=== PATIENT | female | born 1950 | race African-American/Black ===

== ENCOUNTER 2018-02-14 18:48 | Inpatient (IN) | payer MEDICARE, OTHER ==
[~2018-02-14] VITALS: Ht 165.1 cm; Wt 89.9 kg
[2018-02-14 19:45] LABS: Basophils # (auto) 0.2 uL; Eosinophils # (auto) 0.2 uL; Eosinophils % (auto) 2.2 % (0.0-7.0); Hematocrit 45.3 % (36.0-46.0); Hemoglobin 15.1 g/dL (12.2-16.2); Lymphocytes # (auto) 2.5 uL; Mean Corpuscular Hemoglobin 28.9 pg (28.0-32.0); Mean Corpuscular Hgb Conc. 33.3 g/dL (32.0-36.0); Mean Corpuscular Volume 86.7 fL (80.0-100.0); Monocytes # (auto) 0.7 uL; Monocytes % (auto) 9.7 % (0.0-12.0); Neutrophils # (auto) 3.3 uL; Neutrophils % (auto) 48.1 % (37.0-80.0); Nucleated Red Blood Cells % 0.2 %; Platelet Count (auto) 248 10^3/uL (140-450); Red Blood Cells 5.22 10^6/uL (4.0-5.20); Red Cell Distribution Width 14.3 % (11.8-14.3); White Blood Cell 6.9 10^3/uL (4.4-10.8)
[2018-02-14 20:01] LABS: Alanine Aminotransferase 16 U/L (13-56); Albumin 3.4 g/dL (3.4-5.0); Anion Gap 8 (5-15); Aspartate Aminotransferase 12 U/L (15-37); Blood Urea Nitrogen 15 mg/dL (7-18); Calcium 8.5 mg/dL (8.5-10.1); Carbon Dioxide 27 mmol/L (21-32); Chloride 101 mmol/L (98-107); GFR African American 76 mL/min; GFR Non-African American 63 mL/min; Glucose 86 mg/dL (74-106); Potassium 4.1 mmol/L (3.5-5.1); Sodium 136 mmol/L (136-145)
[2018-02-14 20:06] LABS: Alkaline Phosphatase 91 U/L (45-117); Bilirubin, Total 0.2 mg/dL (0.2-1.0); Total Protein 7.7 g/dL (6.4-8.2)
[2018-02-15] MEDS ORDERED: LABETALOL HCL 5 MG/ML ML 20ML VIAL IV ONE
[2018-02-15] MEDS ORDERED: MECLIZINE HCL 25 MG TAB PO ONE (01:15)
[2018-02-15] MEDS ORDERED: ACETAMINOPHEN 500 MG TAB PO PRN (03:15)
[2018-02-15] MEDS ORDERED: ONDANSETRON HCL 4 MG/2 ML VIAL IV PRN (03:15)
[2018-02-15] MEDS: TEMAZEPAM 15 MG CAP PO PRN (04:19)
[2018-02-15 04:50] VITALS: BP 156/72
[2018-02-15 05:01] VITALS: BP 156/72
[2018-02-15] MEDS ORDERED: LABE100T PO (05:14)
[2018-02-15] MEDS ORDERED: GLIP-115 PO (05:14)
[2018-02-15 08:04] LABS: Basophils # (auto) 0.1 uL; Basophils % (auto) 1.4 % (0.0-2.0); Eosinophils # (auto) 0.1 uL; Eosinophils % (auto) 2.3 % (0.0-7.0); Hematocrit 41.8 % (36.0-46.0); Lymphocytes # (auto) 2.4 uL; Lymphocytes % (auto) 41.2 % (10.0-50.0); Mean Corpuscular Hemoglobin 28.8 pg (28.0-32.0); Mean Corpuscular Hgb Conc. 33.4 g/dL (32.0-36.0); Mean Corpuscular Volume 86.1 fL (80.0-100.0); Monocytes # (auto) 0.6 uL; Neutrophils # (auto) 2.6 uL; Neutrophils % (auto) 45.1 % (37.0-80.0); Nucleated Red Blood Cells % 0.1 %; Platelet Count (auto) 213 10^3/uL (140-450); Red Blood Cells 4.85 10^6/uL (4.0-5.20); Red Cell Distribution Width 14.3 % (11.8-14.3); White Blood Cell 5.7 10^3/uL (4.4-10.8)
[2018-02-15 08:23] LABS: BUN/Creatinine Ratio 24.1; Calcium 8.2 mg/dL (8.5-10.1)
[2018-02-15 09:00] VITALS: BP 136/76
[2018-02-15] MEDS ORDERED: LABETALOL HCL 200 MG TAB PO SCH (10:00)
[2018-02-15] MEDS: glipiZIDE 5 MG TAB PO SCH (10:31)
[2018-02-15 13:00] VITALS: BP 160/77
[2018-02-15 17:00] VITALS: BP 159/66
[2018-02-15] MEDS ORDERED: ALPRAZolam 0.25 MG TAB PO PRN (19:15)
[2018-02-15] MEDS ORDERED: LORazepam 2MG/ML-1ML VIAL IV PRN (19:15)
[2018-02-15] MEDS ORDERED: HALOPERIDOL LACTATE 5 MG/ML INJ VIAL IM PRN (19:15)
[2018-02-15 20:04] LABS: Folate (Folic Acid) 11.62 ng/mL (5.38-24)
[2018-02-15 22:00] VITALS: BP 154/64
[2018-02-15] MEDS: LABETALOL HCL 200 MG TAB PO SCH (22:45)
[2018-02-16 04:47] VITALS: BP 149/85
[2018-02-16 05:47] LABS: Urine WBC None Seen /hpf (0 - 5)
[2018-02-16 05:55] LABS: Urine Bacteria NONE SEEN /hpf (None Seen); Urine Blood Negative /uL (Negative); Urine Specific Gravity 1.008 (1.001-1.035)
[2018-02-16] MEDS: LABETALOL HCL 200 MG TAB PO SCH ×3 (06:05→21:42)
[2018-02-16 06:12] LABS: Alcohol, Urine < 3.0 mg/dL (0-5); Amphetamine Screen, Urine NEGATIVE (NEGATIVE); Barbiturate Scree,Urine NEGATIVE (NEGATIVE); Benzodiazephine Screen, Urine NEGATIVE (NEGATIVE); Cannabinoid Screen, Urine NEGATIVE (NEGATIVE); Cocaine Screen, Urine NEGATIVE (NEGATIVE); Opiate Scree,Urine NEGATIVE (NEGATIVE); Phencyclidine Screen, Urine NEGATIVE (NEGATIVE)
[2018-02-16 08:00] VITALS: BP 192/77
[2018-02-16] MEDS: glipiZIDE 5 MG TAB PO SCH (08:13)
[2018-02-16] MEDS: ATORVASTATIN 20 MG TAB PO SCH (10:19)
[2018-02-16] MEDS ORDERED: BENAZEPRIL HCL 10 MG TAB PO ONE (11:00)
[2018-02-16] MEDS ORDERED: hydrALAZINE HCL 20 MG/ML VL IV PRN (11:30)
[2018-02-16 17:00] VITALS: BP 161/78
[2018-02-16] MEDS: BENAZEPRIL HCL 10 MG TAB PO SCH (21:41)
[2018-02-16] MEDS: TEMAZEPAM 15 MG CAP PO PRN (21:42)
[2018-02-16 22:43] VITALS: BP 156/77
[2018-02-17 05:18] VITALS: BP 148/67
[2018-02-17] MEDS: LABETALOL HCL 200 MG TAB PO SCH (06:46)
[2018-02-17] MEDS: glipiZIDE 5 MG TAB PO SCH (08:34)
[2018-02-17 09:00] VITALS: BP 133/73
[2018-02-17] MEDS: BENAZEPRIL HCL 10 MG TAB PO SCH (11:27)
[2018-02-17] MEDS: ATORVASTATIN 20 MG TAB PO SCH (11:27)
== END 2018-02-17 13:15 | disposition home health service (06) | DRG 305 ==
LOC: ER 18:48 → OVERFLOW 18:49 → WEST WING 02-15 04:28
PROVIDERS: ADMIT Nurse Practitioner Family; ATTEND Internal Medicine Pulmonary Disease
DX: I16.0 Hypertensive urgency (principal); R42 Dizziness and giddiness; R44.1 Visual hallucinations; E11.9 Type 2 diabetes mellitus without complications; R51 Headache; E03.9 Hypothyroidism, unspecified; I10 Essential (primary) hypertension; Z82.49 Family history of ischemic heart disease and other diseases of the circulatory system; Z83.3 Family history of diabetes mellitus; Z79.84 Long term (current) use of oral hypoglycemic drugs; Z88.5 Allergy status to narcotic agent
CPT/HCPCS: 36415; 70450; 70545; 70551; 71045; 72125; 80048; 80053; 80307; 81001; 82607; 82746; 82962; 83036; 84443; 84484; 85025; 93005; 93306; 95819; 96374

== ENCOUNTER 2025-04-30 18:49 | Emergency (ER) | payer MEDICARE, OTHER ==
[~2025-04-30] VITALS: Ht 167.6 cm; Wt 118.0 kg
[~2025-04-30 18:49] MED LIST: GLIP5TAB21 PO; LABE100T7 PO
[2025-04-30] MEDS: ACETAMINOPHEN 500 MG TAB or CAP PO ONE (19:48)
--- NOTE | 2025-04-30 20:10 | ED.PDOC ---
Back pain HPI HPI Comments 74 y/o F presents with spouse for c/c of nonradiating, lower back pain s/p mechanical fall and injury. Patient has no recollection of events. Per spouse, patient with family, leaving a restaurant, when she lost balance and fell backwards and landed on her lower back. No reported prior ailments, lost of consciousness, or head or additional injuries sustained. Patient was stated to have been ambulatory following fall. Significant history for HLD, HTN, and dementia. REVIEW OF SYSTEMS: General: No fever, no chills, or fatigue HEENT: No sore throat, no earache, no congestion, no neck pain. Cardiac: No chest pain. No palpitations. Lungs: No shortness of breath, no cough. GI: No nausea, no vomiting, no diarrhea, no constipation, no abdominal pain : No dysuria, frequency, or urgency. No hematuria. Musculoskeletal: Lower back pain. No joint pain , no joint swelling, no extremity edema. Skin: No rash, no itching. Neuro: No headache, no dizziness, no weakness PHYSICAL EXAM: General: Awake, alert and oriented. No acute distress. Skin: Skin in warm, dry and intact. Appropriate color for ethnicity. HEENT: The head is normocephalic and atraumatic. Conjunctivae are clear without exudates or hemorrhage. Sclera is non-icteric. EOM are intact. No signs of nystagmus. Eyelids are normal in appearance without swelling or lesions. Oral mucosa is pink and moist Neck: The neck is supple with normal range of motion. No JVD. Cardiac: Heart rate and rhythm are normal. No murmurs, gallops, or rubs are auscultated. Respiratory: No signs of respiratory distress. Lung sounds are clear in all lobes bilaterally without rales, rhonchi, or wheezes. Abdominal: Abdomen is soft, non-tender without distention, guarding or rigidity. Bowel sounds are present and normoactive in all four quadrants. Extremities: Upper and lower extremities are atraumatic in appearance without deformity or edema. Musculoskeletal: Lumbar spinal tenderness. Neurological: The patient is awake, alert and oriented to person, place, and time with normal speech. Speech is clear. There is no facial asymmetry. Psychiatric: Appropriate mood and affect. Good judgement and insight. Chief Complaint: Fall Injury Time Seen by MD: 19:30 Primary Care Provider: HAMLET Ceollo Notes: Nurses Notes, Medications, Allergies Allergies: Coded Allergies: NO KNOWN ALLERGIES (Unverified , 04/30/25) Home Meds Reported Medications Glipizide (Glipizide) 5 Mg Tab, PO DAILY for 30 Days, MG 02/15/18 Labetalol Hcl (Labetalol Hcl) 100 Mg Tab, PO DAILY for 30 Days, MG 02/15/18 Information Source: Patient, Spouse Mode of Arrival: Ambulatory Timing: Hours Duration: Since onset Past Medical History PAST MEDICAL HISTORY: Dementia, DM, HTN Surgical History: Denies all surgeries BLASTING ENTRY SPECIALIST History: No Pertinent BLASTING ENTRY SPECIALIST History Family History Family History: Unknown Social History Smoker: Non-Smoker Alcohol: Denies ETOH Use Drugs: Denies Drug Use Lives In: Home Was a procedure done? Was a procedure done?: No Back Pain Differential Dx Differential Diagnosis: Fracture, Musculoskeletal Pain, Strain, Other (de generative disc disease, among others ) X-Ray, Labs, Meds, VS Vital Signs Date Time Temp Pulse Resp B/P (MAP) Pulse Ox O2 Delivery O2 Flow Rate FiO2 04/30/25 20:25 97.7 67 16 214/82 (126) 96 97.7 04/30/25 20:25 Room Air* 0 21 04/30/25 18:51 97.6 68 16 228/85 96 97.6 Current Medications Medications (Trade) Dose Ordered Sig/Kaley Route Start Time Stop Time Status Last Admin Tramadol HCl (Ultram) 50 mg ONCE ONCE PO 04/30/25 19:45 04/30/25 19:46 DC 04/30/25 19:48 Acetaminophen (Tylenol Tablet Or Capsule) 1,000 mg ONCE ONCE PO 04/30/25 19:45 04/30/25 19:46 DC 04/30/25 19:48 [place] [id number] Ph: [phone] DIAGNOSTIC IMAGING Diagnostic Imaging Report : [id number] Signed PATIENT: NEELIMA HALL ACCT: [id number] UNIT: [id number] : 1950 LOC: ER ROOM / BED: / AGE / SEX: 74 / F ADM STATUS: REG ER SERVICE 34 ORDERING PHYSICIAN: JOSEPH JON MD PROCEDURE(s): LS2CT - LS SPINE WO CONTRAST REASON: fall low back pain, l spine tender ORDER NUMBER(s): [id number], ACCESSION NUMBER(s): [id number] EXAM: CT LS SPINE WO CONTRAST HISTORY: fall low back pain, l spine tender COMPARISON: None CTDIvol 35.4 mGy, DLP 1319.72 mGy*cm. TECHNIQUE: Multiple axial CT images of the spine were obtained using bone algorithm. Axial and coronal reformatting was done. Bone and soft tissue windows were reviewed. FINDINGS: Nondisplaced fracture line at the anterior superior endplate of L1. No significant associated height loss. No additional identified fracture. Ngsy-up-yrinydlf multilevel spondylosis. Mild multilevel degenerative listhesis. No acute finding of the imaged lower chest, abdominopelvic contents, paraspinal soft tissues, or osseous pelvis. Incompletely characterized right renal cysts. Colonic diverticulosis. Atherosclerosis. IMPRESSION: 1. Nondisplaced anterior superior endplate fracture of L1 without significant associated height loss. 2. Siqg-uz-mqdoeraq spondylosis. ATED BY: JORDAN MONTALVO MD DICTATED DATE/TIME: 04/30/252044 SIGNED BY: JORDAN MONTALVO MD SIGNED DATE/TIME: 04/30/252044 CC: Time of 1ST Reevaluation: 20:00 Reevaluation 1ST: Unchanged Patient Education/Counseling: Treatment, Need For Follow Up Family Education/Counseling: Treatment, Need For Follow Up SEPSIS Sepsis Screen Date sepsis recognized/suspect: Apr 30, 2025 Time Sepsis recognized/suspect: 1855 Recent Procedure: No On Antibiotic Therapy: No Respiratory Rate >20: No Heart Rate >90: No Temp<36 C (96.8 F) or >38.3 C: No SBP <90 or MAP <65 mmHG: No New Acute Mental Status Change: No Is the patient on CPAP, BIPAP,: No Physician Orders Ls Spine Wo Contrast (04/30/25 19:35) Vital Signs Date Time Temp Pulse Resp B/P (MAP) Pulse Ox O2 Delivery O2 Flow Rate FiO2 04/30/25 20:25 97.7 67 16 214/82 (126) 96 97.7 04/30/25 20:25 Room Air* 0 21 04/30/25 18:51 97.6 68 16 228/85 96 97.6 Medications Medications Dose Ordered Sig/Kaley Route Start Time Stop Time Status Last Admin Dose Admin Acetaminophen 1,000 mg ONCE ONCE PO 04/30/25 19:45 04/30/25 19:46 DC 04/30/25 19:48 Tramadol HCl 50 mg ONCE ONCE PO 04/30/25 19:45 04/30/25 19:46 DC 04/30/25 19:48 Departure 1 Departure Time of Disposition: 21:37 Impression: Primary Impression: Wedge compression fracture of first lumbar vertebra Disposition: HOME / SELF CARE / HOMELESS Condition: Stable Additional Instructions: ED DISCHARGE INSTRUCTIONS Instructions: Please read all instructions provided in this packet carefully. Although you have been discharged from the Emergency Department, this does not mean that you have a "clean bill of health". It is possible that you are in the process of developing a serious illness. This is why you must return to the ED without fail if any new or worsening symptoms (especially if your symptoms include chest pain, trouble breathing, abdominal pain, fever, headache, confusion, trouble seeing, or trouble walking) It is also very important that you see a primary care provider (PCP) within the next 3-5 days to follow up. You may need a referral to see a spinal specialist. If you are unable to get an appointment, return to the ED for re-evaluation. A copy of your CAT scan report is included below. Please take the report to your next visit. Compression Fracture of the Spine: Care Instructions A compression fracture happens when the front part of a spinal bone breaks and collapses. A fall or other accident can cause it. A minor injury or moving the wrong way can cause a break if you have thin or brittle bones (osteoporosis). These types of breaks usually will heal within a few months. You may need to rest at first, but it's best to return to your normal activity as soon as you can. You may need medicine for pain. Your doctor may recommend physical therapy. Some doctors recommend that certain people with compression fractures wear braces. Your doctor also may treat thin or brittle bones. You may need surgery if you have lasting pain or if the bone presses on the spinal cord or nerves. You heal best when you take good care of yourself. Eat a variety of healthy foods, and don't smoke. Follow-up care is a [place] part of your treatment and safety. Be sure to make and go to all appointments, and call your doctor if you are having problems. It's also a good idea to know your test results and keep a list of the medicines you take. How can you care for yourself at home? Be safe with medicines. Read and follow all instructions on the label. If you are not taking a prescription pain medicine, ask your doctor if you can take an pqur-fdd-aqdhgll medicine. If the doctor gave you a prescription medicine for pain, take it as prescribed. Store your prescription pain medicines where no one else can get to them. When you are done using them, dispose of them quickly and safely. Your local pharmacy or hospital may have a drop-off site. Follow your doctor's instructions for rest and activity. If you have a brace, wear it as directed. Talk to your doctor about how to make your bones stronger. You may need medicines or a change in what you eat. Be active only as directed by your doctor. Call 911 anytime you think you may need emergency care. For example, call if: You are unable to move an arm or a leg at all. Call your doctor now or seek immediate medical care if: You have new or worse symptoms in your arms, legs, belly, or buttocks. Symptoms may include: Numbness or tingling. Weakness. Pain. You lose bladder or bowel control. You have belly pain, bloating, vomiting, or nausea. Watch closely for changes in your health, and be sure to contact your doctor if: You do not get better as expected. Credits for Compression Fracture of the Spine: Care Instructions Current as of: February 02, 2024 Author: [employer] Staff Clinical Review Board All [employer] education is reviewed by a team that includes physicians, nurses, advanced practitioners, registered dieticians, and other healthcare professionals. EXAM: CT LS SPINE WO CONTRAST HISTORY: fall low back pain, l spine tender COMPARISON: None CTDIvol 35.4 mGy, DLP 1319.72 mGy*cm. TECHNIQUE: Multiple axial CT images of the spine were obtained using bone algorithm. Axial and coronal reformatting was done. Bone and soft tissue windows were reviewed. FINDINGS: Nondisplaced fracture line at the anterior superior endplate of L1. No significant associated height loss. No additional identified fracture. Stak-gm-rtihsoxu multilevel spondylosis. Mild multilevel degenerative listhesis. No acute finding of the imaged lower chest, abdominopelvic contents, paraspinal soft tissues, or osseous pelvis. Incompletely characterized right renal cysts. Colonic diverticulosis. Atherosclerosis. IMPRESSION: 1. Nondisplaced anterior superior endplate fracture of L1 without significant associated height loss. 2. Zqiw-ec-ktfizdbi spondylosis. e-Prescriptions Ibuprofen (Ibuprofen) 600 Mg Tab 1 TAB PO TID, #15 TAB Prov: JOSEPH JON MD 04/30/25 Acetaminophen (Acetaminophen Er) 650 Mg Tab 650 MG PO TIDPRN PRN, #15 TAB Prov: JOSEPH JON MD 04/30/25 Discharged With: Self Comments MDM: 74-year-old female with compression fracture L1 vertebra. Patient is neurologically intact. Patient reports pain is improved after treatment in the emergency department. Patient and family at bedside were offered admission for further treatment, observation and evaluation. Discussed risks, benefits and return precautions with the patient. The patient is declined admission and is requesting to be discharged home to follow up with the primary care provider as an outpatient. Extensive evaluation was performed in attempt to identify or rule out: (See differential diagnosis section) The following tests were ordered, and results were reviewed by me and discussed with patient: (See diagnostic results section) I reviewed and agreed with the following test results read by other providers: CT of the lower spine I reviewed the following notes from the pt's past medical encounters: February 14, 2018 for hypertensive urgency Additional information was gathered from interviewing the following independent historians: Spouse Decision regarding hospitalization or escalation of hospital level of care: Risks and benefits of admission for further treatment of patient's condition was considered however due to patient's stable condition patient will be discharged to follow up closely or return to care for worsening of condition or inability to follow up. Critical Care Note Critical Care Time?: No Stability Stability form required: No Heart Score Heart Score: Heart Score Response (Comments) Value History N/A 0 EKG N/A 0 Age N/A 0 Risk Factors N/A 0 Troponin N/A 0 Total 0 I personally scribed for JOSEPH JON MD ([email or web address]) on 04/30/25 at 20:10. Electronically submitted by Kalia Quinones ([email or web address]). I personally scribed for JOSEPH JON MD ([email or web address]) on 04/30/25 at 21:05. Electronically submitted by Kalia Quinones ([email or web address]). JOSEPH JON MD Apr 30, 2025 20:10
--- NOTE | 2025-04-30 20:48 | DVH ---
EXAM: CT LS SPINE WO CONTRAST HISTORY: fall low back pain, l spine tender COMPARISON: None CTDIvol 35.4 mGy, DLP 1319.72 mGy*cm. TECHNIQUE: Multiple axial CT images of the spine were obtained using bone algorithm. Axial and wilson l reformatting was done. Bone and soft tissue windows were reviewed. FINDINGS: Nondisplaced fracture line at the anterior superior endplate of L1. No significant associated height loss. No additional identified fracture. Fbpu-zg-izsixgcy multilevel spondylosis. Mild multilevel degenerative listhesis. No acute finding of the imaged lower chest, abdominopelvic contents, paraspinal soft tissues, or osse ous pelvis. Incompletely characterized right renal cysts. Colonic diverticulosis. Atherosclerosis. IMPRESSION: 1. Nondisplaced anterior superior endplate fracture of L1 without significant associated height loss. 2. Fwwn-bu-ndnkldfn spondylosis.
[2025-04-30] MEDS ORDERED: ACET650T12 PO (21:40)
[2025-04-30] MEDS ORDERED: IBUP-1454 PO (21:40)
[2025-04-30 22:04] VITALS: BP 201/74; PULSE 77; RESP 16; TEMP 97.7; O2SAT 96
== END 2025-04-30 22:11 | disposition home or self-care (01) ==
LOC: ER 18:49
DX: S32.010A Wedge compression fracture of first lumbar vertebra, initial encounter for closed fracture (principal); I10 Essential (primary) hypertension; E11.9 Type 2 diabetes mellitus without complications; F03.90 Unspecified dementia, unspecified severity, without behavioral disturbance, psychotic disturbance, mood disturbance, and anxiety; Z79.84 Long term (current) use of oral hypoglycemic drugs; Z79.899 Other long term (current) drug therapy; W01.0XXA Fall on same level from slipping, tripping and stumbling without subsequent striking against object, initial encounter; Y93.89 Activity, other specified; Y92.89 Other specified places as the place of occurrence of the external cause; Y99.8 Other external cause status
CPT/HCPCS: 72131